=== PATIENT | male | born 1995 | race Caucasian/White ===

== ENCOUNTER 2021-03-09 10:21 | Outpatient (REF) | payer OTHER, SELFPAY ==
[2021-03-09 10:24] LABS: MANUAL DIFF FLAG NO
[2021-03-09 10:33] LABS: Basophils Percent Auto 0.6 % (0-2); Eosinophils Absolute Auto 0.3 X10*3/uL (0.0-0.4); Eosinophils Percent Auto 5.8 % (0-4); Hematocrit 42.3 % (42.0-52.0); Hemoglobin 13.8 g/dl (14.0-18.0); Imm Gran Abs Auto 0.01 X10*3/uL (0.00-0.03); Imm Gran Pct Auto 0.2 % (0.0-0.4); Lymphocytes Absolute Auto 1.9 X10*3/uL (1.2-4.9); Lymphocytes Percent Auto 37.1 % (20-40); Mean Corpuscular HGB Conc 32.6 g/dl (31.0-36.0); Mean Corpuscular Hemoglobin 27.8 pg (27.0-33.0); Mean Corpuscular Volume 85.3 fL (80.0-98.0); Mean Platelet Volume 11.8 fL (9.4-12.4); Monocytes Absolute Auto 0.6 X10*3/uL (0.1-1.2); Monocytes Percent Auto 12.3 % (2-11); Neutrophils Absolute Auto 2.3 x10*3/uL (2.0-8.3); Platelet Count 166 X10*3/uL (160-400); Red Blood Count 4.96 X10*6/uL (4.60-5.80); Red Cell Distribution Width 12.5 % (11.0-16.0); White Blood Count 5.2 X10*3/uL (4.8-10.8)
[2021-03-09 10:37] LABS: Appearance Urine CLEAR; Color Urine YELLOW; Glucose Urine UA NEG (NEG); Leukocyte Esterase Urine NEG (NEG); Nitrite Urine NEG (NEG); Urine Blood TRACE (NEG); Urine Ketones NEG (NEG); Urine Protein NEG (NEG-TRACE)
[2021-03-09 10:43] LABS: Alanine Aminotransferase 19 U/L (0-40); Albumin Level 4.4 g/dL (3.5-5.0); Alkaline Phosphatase 46 U/L (39-117); Anion Gap 12 (12-20); Aspartate Amino Transferase 23 U/L (5-37); Blood Urea Nitrogen 18 mg/dL (9-16); Calcium 9.4 mg/dL (8.4-10.2); Carbon Dioxide 26 mmol/L (22-29); Chloride 103 mmol/L (96-108); Cholesterol 146 mg/dL; Estimated Glomerular Filt Rate > 60; Glucose Fasting 86 mg/dL (60-99); HDL Cholesterol 60 mg/dL; LDL Cholesterol Calculated 77 mg/dl; Sodium 137 mmol/L (135-145); Total Protein 6.9 g/dL (6.5-8.0); Triglycerides 46 mg/dL
[2021-03-09 10:54] LABS: RBC Urine 0-2 /HPF (0); WBC Urine 0 /HPF (0-4)
== END 2021-03-09 10:22 | disposition home or self-care (01) ==
LOC: HO.LNP 10:21
PROVIDERS: Visit Provider Internal Medicine
DX: Z00.00 Encounter for general adult medical examination without abnormal findings (principal); R80.9 Proteinuria, unspecified
CPT/HCPCS: 80053; 80061; 81001; 85025

== ENCOUNTER 2021-03-18 08:55 | Outpatient (REF) | payer OTHER, SELFPAY ==
[2021-03-18 10:40] LABS: HBS Num1 18.88 mIU/mL (0-7.99); HBc Num1 0.08 S/CO (0.00-0.79); HBsAGNum1 0.18 S/CO (0.00-0.99); HIV AB/AG Nonreactive (Nonreactive); HIV Num 1 0.07 S/CO (0.00-0.99); Hepatitis B Core Antibody Nonreactive (Nonreactive); Hepatitis B Surface Antigen Negative (Negative); ~HepC Num1 0.08 S/CO (0.00-0.79); ~Hepatitis B Surface Antibody REACTIVE (Nonreactive); ~Hepatitis C Antibody Nonreactive (Nonreactive)
[2021-03-19 01:01] LABS: CT PCR NOT DETECTED (Not Detect.); NG PCR NOT DETECTED (Not Detect.)
[2021-03-19 07:35] LABS: Syphilis Screen Nonreactive (Nonreactive)
[2021-03-19 07:46] LABS: Hepatitis A Antibody IgM 0.13 Index (0-0.79); ~Hepatitis A Antibody IgM Nonreactive (Nonreactive)
== END 2021-03-18 08:56 | disposition home or self-care (01) ==
LOC: HO.LAB 08:55
PROVIDERS: PCP Internal Medicine; Visit Provider Internal Medicine
DX: Z11.4 Encounter for screening for human immunodeficiency virus [HIV] (principal); Z11.3 Encounter for screening for infections with a predominantly sexual mode of transmission
CPT/HCPCS: 86704; 86706; 86709; 86780; 86803; 87340; 87389; 87491; 87591

== ENCOUNTER 2021-08-11 10:39 | Emergency (ER) | payer OTHER, SELFPAY ==
[2021-08-11 10:48] VITALS: BP 129/73; PULSE 67; RESP 16; TEMP 36.2; O2SAT 99; BMI 23.1
--- NOTE | 2021-08-11 12:14 | ED.ANIMALBIT ---
HPI - Animal Bite General Chief Complaint: Animal Bite Stated Complaint: dog bite Time Seen by Provider: 08/11/21 12:03 Source: patient Mode of arrival: ambulatory Limitations: no limitations History of Present Illness MD complaint: animal bite Onset (ago): day(s) (5) Animal: dog Description of animal: unknown animal Mechanism: scratch Location: neck Context: unprovoked Associated symptoms: none Treatments prior to arrival: irrigation Related Data Patient tetanus UTD: Yes (Reports he received his tetanus on Monday) Previous Rx's Medication Instructions Recorded amoxicillin 875 mg-potassium 1 tab PO BID 10 Days #20 tab 08/11/21 clavulanate 125 mg tablet Allergies Allergy/AdvReac Type Severity Reaction Status Date / Time No Known Allergies Allergy Verified 08/11/21 10:47 [No Known Allergies*] Review of Systems Review of Systems: Constitutional : No Weight loss, No Fever, No Chills, No Night Sweats, No Fatigue, No Malaise ENT/Mouth : No Hearing loss, No Ear Pain, No Nasal Congestion, No Sinus Pain, No Hoarseness, No sore throat, No Rhinorrhea, No Swallowing Difficulty Eyes: No Eye Pain, No Swelling, No Redness, No Foreign Body, No Discharge, No Vision Changes Cardiovascular : No Chest Pain, No SOB, No Dyspnea on Exertion, No Orthopnea, No Edema, No Palpitations Respiratory : No Cough, No Sputum, No Wheezing, No Smoke Exposure, No Dyspnea Gastrointestinal : No Nausea, No Vomiting, No Diarrhea, No Constipation, No abdominal Pain, No Hematochezia, No Melena Genitourinary : no irregular bleeding, No Dysuria, No Urinary Frequency, No Hematuria, No Urinary Incontinence, No Urgency, No Flank Pain, No Urinary Flow Changes, No Hesitancy Musculoskeletal : No joint pain, No Myalgias, No Joint Swelling Skin : + right sided neck abrasion, No Skin Lesions, No rash Neuro : No Weakness, No Numbness, No Paresthesias, No Loss of Consciousness, No Dizziness, No Headache Psych : No Anxiety/Panic, No Depression, No SI/HI/AH/VH, No Social Issues, Heme/Lymph: No Bruising, No Bleeding,No Lymphadenopathy Endocrine : No Polyuria, No Polydipsia, No Temperature Intolerance Yes all other systems are reviewed and are negative PMFSH Past Medical History Attestation statement: The following information was validated with the patient. Medical History No known health problems Social History Social History Advance Directives: No Advance Directives Information Provided: No Physical Exam ED Vital Signs: Vital Signs - 24 hr 08/11/21 10:48 Temperature 97.1 F Pulse Rate 67 Respiratory Rate 16 Blood Pressure 129/73 Pulse Oximetry 99 BMI result Body Mass Index 23.1 vital signs have been reviewed as normal and appeared to be correct. Blood pressure normal. Heart rate normal. Respiration rate normal. Temperature normal. Oxygen saturation normal. Appearance: Alert. Oriented X3. No acute distress. Head: Normal external exam. Normocephalic. Atraumatic. Eyes: PERRLA. EOMI. Conjunctiva and sclera normal. Eyelids normal. ENT: Pharynx normal. Uvula midline. Moist mucous membranes. No lesions/ulcerations or masses noted on the tongue. Normal voice. No trismus noted. No drooling noted. No muffled voice noted. Neck: Normal inspection. Neck supple. FROM. No adenopathy. Thyroid Normal. No tracheal deviation noted. No crepitus is noted. No meningeal signs. No neck mass noted. Superficial abrasions to right side of neck no actual bite guevara or puncture wounds or active bleeding or foreign bodies noted. CVS: Normal heart rate and rhythm. Heart sound normal. Pulses normal throughout. No murmurs/rales/gallops. Respiratory: No respiratory distress. Painless inspiration. Breath sounds normal. No wheezes/rales/rhonchi noted. Chest nontender. No crepitus is noted. No signs of trauma noted. No accessory muscle usage noted or decreased air movement noted. No signs of trauma. Back: Full range of motion noted. Skin: Skin warm and dry. Normal skin color. Normal skin turgor. No rashes/lesions/lacerations noted. Extremities: No lower extremity edema. No calf tenderness is noted. Extremities exhibit normal range of motion and nontender. Neuro: Oriented X 3. No motor deficit. No sensory deficit. Reflexes normal. Normal steady gait. No focal neuro deficits noted. CN's II-XII intact bilaterally? Vascular: + radial pulses/+ 2 distal pedal pulses/+2 dorsalis pedis b/l. Normal cap refill. No cyanosis noted to upper extremity nails and lower extremity toes nails. Course Course Course Narrative: Patient with superficial abrasions to right side of neck from unknown dog that was unprovoked [place] the dog park[place] He tried to find the dog although he is unsure if the dog was vaccinated. He reports that he obtained his tetanus shot on Monday. He denies any other symptoms. Therefore at this time patient will need a rabies immunoglobulin and vaccine and I explained him that he will need to come back on day 06/07 and 14 for the rabies vaccine at short-stay surgery and to return if any new or worsening symptoms will DC home antibiotics instructions to return on day to short-stay patient understands agrees with this plan. MDM - Animal Bite Medical Records Attestation: I reviewed the patient's medical records. Discharge Plan Discharge Clinical Impression: Bite by animal, Abrasion of neck Patient Disposition: Home, Self-Care Instructions: Animal Bite (ED) Additional Instructions: YOU DO NOT RETURN TO THE EMERGENCY DEPARTMENT YOU RETURN TO THE SHORT-STAY FOR THE REST OF YOUR RABIES VACCINE YOU NEED TO RETURN ON DAY 3 WHICH WILL BE 08/14/21 THEN ON 08/18/21 THEN ON 08/25/21 TO COMPLETE YOUR RABIES SERIES VACCINE THIS IS VERY IMPORTANT TO COMPLETE THE SERIES SO YOU DO NOT OBTAINED RABIES Prescriptions: New amoxicillin-pot clavulanate 875-125 mg tablet 1 tab PO BID 10 Days Qty: 20 0RF Referrals: Scott Tellez MD [Primary Care Provider] - 2 days
[2021-08-11] MEDS: Rabies Vaccine (PCEC)/PF 1 ML VIAL IM (12:44)
[2021-08-11] MEDS: Rabies Immune Globulin/PF 1,500 UNIT/5 ML VIAL 1462 UNIT IM (12:50)
== END 2021-08-11 13:40 | disposition home or self-care (01) ==
PROVIDERS: Emergency Provider Emergency Medicine; PCP Internal Medicine
DX: S10.97XA Other superficial bite of unspecified part of neck, initial encounter (principal); S10.91XA Abrasion of unspecified part of neck, initial encounter; M54.2 Cervicalgia; X58.XXXA Exposure to other specified factors, initial encounter; Y93.9 Activity, unspecified; Y92.830 Public park as the place of occurrence of the external cause; Y99.9 Unspecified external cause status
CPT/HCPCS: 90375; 90471; 90675; 96372; 99283; 99284

== ENCOUNTER 2021-08-14 09:51 | Outpatient (REF) | payer OTHER, SELFPAY | END 2021-08-14 09:52 | disposition home or self-care (01) | LOC: HO.MDS 09:51 | PROVIDERS: PCP Internal Medicine; Visit Provider Physician Assistant Medical | DX: Z29.14 Encounter for prophylactic rabies immune globulin (principal); S00.81XD Abrasion of other part of head, subsequent encounter; S10.91XD Abrasion of unspecified part of neck, subsequent encounter; W54.0XXD Bitten by dog, subsequent encounter; Z20.3 Contact with and (suspected) exposure to rabies | CPT/HCPCS: 90471; 90675 ==

== ENCOUNTER 2021-08-18 07:23 | Outpatient (REF) | payer OTHER, SELFPAY | END 2021-08-18 07:24 | disposition home or self-care (01) | LOC: HO.MDS 07:23 | PROVIDERS: Visit Provider Physician Assistant Medical | DX: Z29.14 Encounter for prophylactic rabies immune globulin (principal); S00.81XD Abrasion of other part of head, subsequent encounter; S10.91XD Abrasion of unspecified part of neck, subsequent encounter; W54.0XXD Bitten by dog, subsequent encounter; Z20.3 Contact with and (suspected) exposure to rabies | CPT/HCPCS: 90675 ==

== ENCOUNTER 2021-08-25 07:18 | Outpatient (REF) | payer OTHER, SELFPAY | END 2021-08-25 07:19 | disposition home or self-care (01) | LOC: HO.MDS 07:18 | PROVIDERS: Visit Provider Physician Assistant Medical | DX: Z29.14 Encounter for prophylactic rabies immune globulin (principal); S00.81XD Abrasion of other part of head, subsequent encounter; S10.91XD Abrasion of unspecified part of neck, subsequent encounter; W54.0XXD Bitten by dog, subsequent encounter; Z20.3 Contact with and (suspected) exposure to rabies | CPT/HCPCS: 90471; 90675 ==

== ENCOUNTER 2022-03-14 10:53 | Outpatient (REF) | payer OTHER, SELFPAY ==
[2022-03-14 10:57] LABS: MANUAL DIFF FLAG NO
[2022-03-14 11:02] LABS: Basophils Percent Auto 0.5 % (0-2); Eosinophils Absolute Auto 0.2 X10*3/uL (0.0-0.4); Eosinophils Percent Auto 3.6 % (0-4); Hematocrit 42.5 % (42.0-52.0); Imm Gran Abs Auto 0.01 X10*3/uL (0.00-0.03); Imm Gran Pct Auto 0.2 % (0.0-0.4); Mean Corpuscular HGB Conc 32.9 g/dl (31.0-36.0); Mean Corpuscular Hemoglobin 27.8 pg (27.0-33.0); Mean Corpuscular Volume 84.5 fL (80.0-98.0); Mean Platelet Volume 12.3 fL (9.4-12.4); Monocytes Absolute Auto 0.6 X10*3/uL (0.1-1.2); Neutrophils Absolute Auto 2.7 x10*3/uL (2.0-8.3); Neutrophils Percent Auto 48.7 % (45-73); Platelet Count 185 X10*3/uL (160-400); Red Blood Count 5.03 X10*6/uL (4.60-5.80); Red Cell Distribution Width 12.6 % (11.0-16.0); White Blood Count 5.5 X10*3/uL (4.8-10.8)
[2022-03-14 11:04] LABS: Appearance Urine Clear; Color Urine Yellow; Glucose Urine UA Negative (Negative); Leukocyte Esterase Urine Negative (Negative); Nitrite Urine Negative (Negative); Specific Gravity - Urine >= 1.030 (1.005-1.025); Urine Blood Negative (Negative); Urine Ketones Trace mg/dL (Negative); Urine Protein Negative (Neg-Trace)
[2022-03-14 11:07] LABS: Bacteria Urine None Seen (None Seen); Hyaline Casts Urine 0-2 /LPF (0-2); RBC Urine 0-2 /HPF (0-2); Squamous Epithelial Cell Urine 0-2 /HPF (0-2); WBC Urine 0-5 /HPF (0-5)
[2022-03-14 11:40] LABS: Alanine Aminotransferase 17 U/L (0-40); Albumin Level 4.2 g/dL (3.5-5.0); Alkaline Phosphatase 45 U/L (39-117); Anion Gap 13 (12-20); Aspartate Amino Transferase 25 U/L (5-37); Bilirubin Total 0.5 mg/dL (0.0-1.0); Blood Urea Nitrogen 15 mg/dL (9-16); Calcium 9.1 mg/dL (8.4-10.2); Carbon Dioxide 26 mmol/L (22-29); Chloride 103 mmol/L (96-108); Cholesterol 115 mg/dL; Estimated Glomerular Filt Rate > 60; Glucose Fasting 90 mg/dL (60-99); HDL Cholesterol 49 mg/dL; LDL Cholesterol Calculated 58 mg/dl; Potassium 3.8 mmol/L (3.3-5.1); Sodium 138 mmol/L (135-145); Total Protein 6.5 g/dL (6.5-8.0); Triglycerides 43 mg/dL
== END 2022-03-14 10:54 | disposition home or self-care (01) ==
LOC: HO.LNP 10:53
PROVIDERS: Visit Provider Internal Medicine
DX: Z00.00 Encounter for general adult medical examination without abnormal findings (principal)
CPT/HCPCS: 80053; 80061; 81001; 85025

== ENCOUNTER 2023-04-25 11:19 | Outpatient (REF) | payer OTHER, SELFPAY ==
[2023-04-25 11:22] LABS: MANUAL DIFF FLAG NO
[2023-04-25 12:04] LABS: Appearance Urine Clear; Basophils Percent Auto 0.7 % (0-2); Color Urine Yellow; Eosinophils Absolute Auto 0.3 X10*3/uL (0.0-0.4); Eosinophils Percent Auto 5.7 % (0-4); Glucose Urine UA Negative (Negative); Hematocrit 44.1 % (42.0-52.0); Hemoglobin 14.4 g/dl (14.0-18.0); Imm Gran Abs Auto 0.01 X10*3/uL (0.00-0.03); Imm Gran Pct Auto 0.2 % (0.0-0.4); Leukocyte Esterase Urine Negative (Negative); Lymphocytes Absolute Auto 1.7 X10*3/uL (1.2-4.9); Mean Corpuscular HGB Conc 32.7 g/dl (31.0-36.0); Mean Corpuscular Hemoglobin 27.9 pg (27.0-33.0); Mean Corpuscular Volume 85.3 fL (80.0-98.0); Monocytes Absolute Auto 0.5 X10*3/uL (0.1-1.2); Monocytes Percent Auto 10.3 % (2-11); Neutrophils Absolute Auto 2.1 x10*3/uL (2.0-8.3); Neutrophils Percent Auto 45.1 % (45-73); Nitrite Urine Negative (Negative); PH 5.5 (5.0-9.0); Platelet Count 185 X10*3/uL (160-400); Red Blood Count 5.17 X10*6/uL (4.60-5.80); Red Cell Distribution Width 12.6 % (11.0-16.0); Specific Gravity - Urine 1.025 (1.005-1.025); UMIC TRIGGER UACC YES; Urine Blood Trace (Negative); Urine Ketones Negative (Negative); Urine Protein Negative (Neg-Trace); White Blood Count 4.6 X10*3/uL (4.8-10.8)
[2023-04-25 12:10] LABS: Bacteria Urine None Seen (None Seen); Hyaline Casts Urine 0-2 /LPF (0-2); Squamous Epithelial Cell Urine 0-2 /HPF (0-2); WBC Urine 0-5 /HPF (0-5)
[2023-04-25 12:49] LABS: Alanine Aminotransferase 15 U/L (0-40); Albumin Level 4.5 g/dL (3.5-5.0); Alkaline Phosphatase 43 U/L (39-117); Anion Gap 12 (12-20); Aspartate Amino Transferase 22 U/L (5-37); Bilirubin Total 0.7 mg/dL (0.0-1.0); Blood Urea Nitrogen 19 mg/dL (9-16); Calcium 9.4 mg/dL (8.4-10.2); Carbon Dioxide 27 mmol/L (22-29); Chloride 104 mmol/L (96-108); Cholesterol 159 mg/dL (<200); Estimated Glomerular Filt Rate > 60; Glucose Fasting 80 mg/dL (60-99); HDL Cholesterol 56 mg/dL (>40); LDL Cholesterol Calculated 96 mg/dL (<100); Potassium 3.7 mmol/L (3.3-5.1); Sodium 139 mmol/L (135-145); Total Protein 7.1 g/dL (6.5-8.0); Triglycerides 39 mg/dL (<150)
== END 2023-04-25 11:20 | disposition home or self-care (01) ==
LOC: HO.LNP 11:19
PROVIDERS: Visit Provider Internal Medicine
DX: Z00.00 Encounter for general adult medical examination without abnormal findings (principal)
CPT/HCPCS: 80053; 80061; 81001; 85025

== ENCOUNTER 2023-06-29 14:57 | Outpatient (REF) | payer OTHER, SELFPAY ==
[2023-06-29 20:13] LABS: Urine Cytology See Pathology rpt
[2023-06-29 21:05] LABS: Appearance Urine Clear; Color Urine Yellow; Glucose Urine UA Negative (Negative); Leukocyte Esterase Urine Negative (Negative); Nitrite Urine Negative (Negative); Urine Blood Negative (Negative); Urine Ketones Negative (Negative); Urine Protein Negative (Neg-Trace)
[2023-06-29 21:10] LABS: Bacteria Urine None Seen (None Seen); Hyaline Casts Urine 0-2 /LPF (0-2); RBC Urine 0-2 /HPF (0-2); Squamous Epithelial Cell Urine 0-2 /HPF (0-2); WBC Urine 0-5 /HPF (0-5)
== END 2023-06-29 14:58 | disposition home or self-care (01) ==
LOC: HO.LAB 14:57
PROVIDERS: PCP Internal Medicine; Visit Provider Urology
DX: R31.29 Other microscopic hematuria (principal)
CPT/HCPCS: 81001; 81003; 88112

== ENCOUNTER 2023-06-29 14:57 | Outpatient (AMB) | payer OTHER, SELFPAY ==
--- NOTE | 2023-06-29 15:06 | A.OFFVIS_ITS ---
Intake Intake Visit Reasons: hematuria R31.2 Intake Note: NEW Patient presents today to established treatment for Hematuria: Meds- None Allergies to Antibiotic- No Known Allergies Blood Thinner- None Front Services Agent Required: No Accompanied by: Self / Same As Patient Allergies No Known Allergies [No Known Allergies*] Allergy (Verified 06/29/23 15:06) Medication List - Last Reconciled 06/29/23 by Catarina Smith MD No Known Home Meds HPI HPI Comments History of Present Illness Details Tristan is a 27-year-old male who is here for evaluation for microscopic hematuria. I have reviewed urine testing dating back to 2019 trace blood noted. The patient denies any irritative voiding symptoms. Denies gross hematuria. I have discussed that 0-3 red blood cells per high-powered field is within normal limits. Family history of breast cancer in his mother and maternal grandmother. He denies history of nicotine use. I have discussed reasons for blood in the urine may include but are not limited to kidney stones, cancer in the urinary tract, BPH, kidney stone disease or inflammatory conditions of the urinary tract. I will order a kidney and bladder ultrasound. I will send urine for microscopic evaluation and urine cytology. Pending results we will decide if cystoscopy is indicated. 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 Hematuria, microscopic Surgical History History of appendectomy Family History Father No known health problems Mother No known health problems Social History Alcohol intake: current Alcohol intake frequency: holidays/special occasions only Patient Tobacco Use Status: Never used Tobacco Review of Systems Const All systems reviewed & are unremarkable except as noted in HPI and below Reports no additional complaints Eyes Reports no additional complaints ENT Reports no additional complaints Card Reports no additional complaints Resp Reports no additional complaints GI Reports no additional complaints Reports as per HPI Musc Reports no additional complaints Skin/Breast Reports system reviewed and no additional complaints, except as documented Neuro Reports no additional complaints Psych Reports no additional complaints Endo Reports no additional complaints Neel/Lymph Reports no additional complaints Aller/Immun Reports no additional complaints Physical Exam Const General: healthy appearing, no acute distress and well developed Orientation/consciousness: patient oriented x3 HEENT Head: Yes normocephalic and Yes atraumatic Eyes Conjunctivae: conjunctivae normal Neck Neck: Yes normal visual inspection Chest Chest palpation & inspection: normal inspection of the chest Resp Effort & Inspection: normal respiratory effort Cardio Rate: regular rate GI Inspection: Yes normal to inspection Skin General skin exam: no rashes or lesions noted Neuro General: patient oriented x3 Extrem General: No pedal edema Psych Appearance: grossly normal Affect: normal affect Results AMB Urinalysis, Automated UA Leukoctes 0 Otilia/uL Last Edit by TARA Brice on 06/29/23 15:19 UA Nitrite Negative Last Edit by TARA Brice on 06/29/23 15:19 UA Urobilinogen 0.2 mg/dL Last Edit by TARA Brice on 06/29/23 15:1 9 UA Protein 0 mg/dL Last Edit by TARA Brice on 06/29/23 15:19 UA pH 7.0 Last Edit by TARA Brice on 06/29/23 15:19 UA Blood 10 Hesham/uL Last Edit by Adalberto Treadwell Marco on 06/29/23 15:19 UA Specific [place] 1.010 Last Edit by TARA Brice on 06/29/23 15: 19 UA Ketone Negative Last Edit by TARA Brice on 06/29/23 15:19 UA Bilirubin 0 mg/dL Last Edit by TARA Brice on 06/29/23 15:19 UA Glucose 0 mg/dL Last Edit by TARA Brice on 06/29/23 15:19 Results Reviewed Results Reviewed: Laboratory Last Values Urine pH (Auto) 7.0 06/29/23 15:17 Specific [place] (Auto) 1.010 06/29/23 15:17 Urine Protein (Auto) 0 mg/dL 06/29/23 15:17 Glucose (UA)(Auto) 0 mg/dL 06/29/23 15:17 Urine Ketones (Auto) Negative 06/29/23 15:17 Urine Blood (Auto) 10 Hesham/uL 06/29/23 15:17 Urine Nitrite (Auto) Negative 06/29/23 15:17 Urine Bilirubin (Auto) 0 mg/dL 06/29/23 15:17 Urine Urobilinogen (Auto) 0.2 mg/dL 06/29/23 15:17 Leukocyte Esterase (Auto) 0 Otilia/uL 06/29/23 15:17 Assessment & Plan Assessment & Plan (1) Hematuria: Code(s): R31.9 - Hematuria, unspecified Plan Urine cytology. urinalysis sent for microscopic evaluation. Renal and bladder ultrasound follow-up post Orders: Orders AMB Urinalysis Automated Today Z13.9 - Encounter for screening, unspecified UA w Microscopic Today R31.9 - Hematuria, unspecified US retroperitoneal comp Today R31.9 - Hematuria, unspecified Urine Cytology Today R31.29 - Other microscopic hematuria Patient Instructions: The patient had an opportunity to ask questions regarding treatment plan. All questions were answered. Laboratory studies reviewed in detail. No major barriers to understanding were identified. The patient expressed understanding and agreement with the above treatment plan. The patient is aware they should contact our office by phone for worsening of their current condition or the appearance of new symptoms. Compliance is encouraged with any medications and followup testing that is ordered. It is a privilege to be allowed the opportunity to participate in the urologic care of your patient. If you have any questions or concerns regarding treatment for the above conditions please do not hesitate to contact me. The office telephone contact is [phone]. This note is constructed in part using voice recognition software. While every effort has been made to ensure accuracy cd mixer errors may have been included. Yours sincerely, Catarina Smith MD Coding Level of Care Code New Pt Level 3 (11582) Diagnoses Hematuria R31.9
== END 2023-06-29 15:51 | disposition home or self-care (01) ==
PROVIDERS: PCP Internal Medicine; Visit Provider Urology
DX: Z13.9 Encounter for screening, unspecified (principal); R31.9 Hematuria, unspecified
CPT/HCPCS: 99203

== ENCOUNTER 2023-07-31 16:17 | Outpatient (REF) | payer OTHER, SELFPAY ==
--- NOTE | ~2023-07-31 | US_ITS ---
EXAMINATION: US RETROPERITONEAL COMPLETE (RENAL) CLINICAL INFORMATION: Hematuria, unspecified. COMPARISON: CT abdomen and pelvis 01/30/2014. TECHNIQUE: Real-time imaging of the kidneys and bladder. FINDINGS: RIGHT KIDNEY: 9.6 x 3.6 x 3.4 cm (SAG x AP x TRV). The kidney is normal in size, contour, and echogenicity. Renal cortical thickness is normal. No calculi or focal parenchymal lesions. No hydronephrosis. LEFT KIDNEY: 10.9 x 5.6 x 3.8 cm (SAG x AP x TRV). The kidney is normal in size, contour, and echogenicity. Renal cortical thickness is normal. No calculi or focal parenchymal lesions. No hydronephrosis. BLADDER: Well distended and normal. Bilateral ureteral jets are demonstrated. Prevoid bladder volume is 295.7 mL. Postvoid bladder volume is 14.5 mL. Prostate volume 9.8 mL. US/US retroperitoneal comp IMPRESSION: No explanation for hematuria.
== END 2023-07-31 16:18 | disposition home or self-care (01) ==
LOC: HO.US 16:17
PROVIDERS: PCP Internal Medicine; Visit Provider Urology
DX: R31.9 Hematuria, unspecified (principal)
CPT/HCPCS: 76770

== ENCOUNTER 2023-08-14 08:16 | Outpatient (AMB) | payer OTHER, SELFPAY ==
--- NOTE | 2023-08-14 08:19 | MHC.OFFVIS ---
Intake Visit Reasons: 7w/US Allergies No Known Allergies [No Known Allergies*] Allergy (Verified 08/14/23 08:20) HPI Comments Details: 08/14/2023--Tristan is here in follow-up for evaluation due to microscopic hematuria. He was initially evaluated on 06/29/2023; a renal ultrasound was ordered and urine was sent for cytology. Cytology came back with a few atypical cells. Renal ultrasound 07/31/2023 was within normal limits. Urine cytology 06/30/23-benign urothelial cells with a few atypical cells, reactive in nature and chronic inflammation. The patient is asymptomatic, without any irritative urinary symptoms. Discussed repeat urine cytology, if no new findings, will continue to monitor follow-up in 1 year. Review of chart: 06/29/2023--Tristan is a 27-year-old male who is here for evaluation for microscopic hematuria. I have reviewed urine testing dating back to 2019 trace blood noted. The patient denies any irritative voiding symptoms. Denies gross hematuria. I have discussed that 0-3 red blood cells per high-powered field is within normal limits. Family history of breast cancer in his mother and maternal grandmother. He denies history of nicotine use. I have discussed reasons for blood in the urine may include but are not limited to kidney stones, cancer in the urinary tract, BPH, kidney stone disease or inflammatory conditions of the urinary tract. I will order a kidney and bladder ultrasound. I will send urine for microscopic evaluation and urine cytology. Pending results we will decide if cystoscopy is indicated. 08/14/2023--plan-repeat urine cytology, follow-up in 1 year. 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 Hematuria, microscopic Surgical History History of appendectomy Family History Father No known health problems Mother No known health problems Social History Alcohol intake: current Alcohol intake frequency: holidays/special occasions only Patient Tobacco Use Status: Never used Tobacco Review of Systems Const All systems reviewed & are unremarkable except as noted in HPI and below Reports no additional complaints Eyes Reports no additional complaints ENT Reports no additional complaints Card Reports no additional complaints Resp Reports no additional complaints GI Reports no additional complaints Reports as per HPI Musc Reports no additional complaints Skin/Breast Reports system reviewed and no additional complaints, except as documented Neuro Reports no additional complaints Psych Reports no additional complaints Endo Reports no additional complaints Neel/Lymph Reports no additional complaints Aller/Immun Reports no additional complaints Results AMB Urinalysis, Automated UA Leukoctes 0 Otilia/uL Last Edit by TARA Brice on 08/14/23 08:29 UA Nitrite Negative Last Edit by Adalberto Treadwell Marco on 08/14/23 08:29 UA Urobilinogen 0.2 mg/dL Last Edit by TARA Brice on 08/14/23 08:29 UA Protein 0 mg/dL Last Edit by Adalberto Treadwell Marco on 08/14/23 08:29 UA pH 7.0 Last Edit by Adalberto Treadwell [facility] on 08/14/23 08:29 UA Blood 0 Hesham/uL Last Edit by Adalberto Treadwell Marco on 08/14/23 08:29 UA Specific [place] 1.020 Last Edit by Adalberto Treadwell Marco on 08/14/23 08:29 UA Ketone Negative Last Edit by Adalberto Treadwell Marco on 08/14/23 08:29 UA Bilirubin 0 mg/dL Last Edit by Adalberto Treadwell Marco on 08/14/23 08:29 UA Glucose 0 mg/dL Last Edit by Adalberto Treadwell [facility] on 08/14/23 08:29 Results Reviewed Results Reviewed: Date of Service: 07/31/23 EXAMINATION: US RETROPERITONEAL COMPLETE (RENAL) CLINICAL INFORMATION: Hematuria, unspecified. COMPARISON: CT abdomen and pelvis 01/30/2014. TECHNIQUE: Real-time imaging of the kidneys and bladder. FINDINGS: RIGHT KIDNEY: 9.6 x 3.6 x 3.4 cm (SAG x AP x TRV). The kidney is normal in size, contour, and echogenicity. Renal cortical thickness is normal. No calculi or focal parenchymal lesions. No hydronephrosis. LEFT KIDNEY: 10.9 x 5.6 x 3.8 cm (SAG x AP x TRV). The kidney is normal in size, contour, and echogenicity. Renal cortical thickness is normal. No calculi or focal parenchymal lesions. No hydronephrosis. BLADDER: Well distended and normal. Bilateral ureteral jets are demonstrated. Prevoid bladder volume is 295.7 mL. Postvoid bladder volume is 14.5 mL. Prostate volume 9.8 mL. IMPRESSION: No explanation for hematuria. Collected: 06/29/23 Location: .LAB Received: 06/30/23 Diagnosis Urine: Few atypical urothelial cells. COMMENT: Examination of a monolayer preparation slide shows benign urothelial cells with focal reactive changes, benign squamous cells, and few hyperchromatic urothelial cells with moderately increased nuclear:cytoplasmic ratios meeting the criteria for atypia. There are also scattered red blood cells, occasional casts, and scattered chronic inflammatory cells. Clinical History Microscopic hematuria Material Received Urine Gross Description Received are 50 cc of clear yellow fluid from which a ThinPrep slide is prepared. Assessment & Plan Assessment & Plan (1) Hematuria: Code(s): R31.9 - Hematuria, unspecified Category: Medical Plan Urinalysis today negative for blood. Urine cytology 06/30/23-benign urothelial cells with a few atypical cells, reactive in nature and chronic inflammation. The patient is asymptomatic, without any irritative urinary symptoms. Discussed repeat urine cytology, if no new findings, will continue to monitor follow-up in 1 year Orders: Orders AMB Urinalysis Automated Today Z13.9 - Encounter for screening, unspecified Patient Instructions: The patient had an opportunity to ask questions regarding treatment plan. The patient expressed understanding and agreement with the above treatment plan. The patient is aware they should contact our office by phone for worsening of their current condition or the appearance of new symptoms. Compliance is encouraged with any medications and followup testing that is ordered. It is a privilege to be allowed the opportunity to participate in the urologic care of your patient. If you have any questions or concerns regarding treatment for the above conditions please do not hesitate to contact me. The office telephone contact is [phone]. This note is constructed in part using voice recognition software. While every effort has been made to ensure accuracy landscape account manager errors may have been included. Yours sincerely, Catarina Smith MD Coding Level of Care Code Est Pt Level 3 (02727) Complex EM visit Add On G2211 Diagnoses Hematuria R31.9
--- NOTE | 2023-08-14 08:20 | A.OFFVIS_ITS ---
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
== END 2023-08-14 08:38 | disposition home or self-care (01) ==
PROVIDERS: PCP Internal Medicine; Visit Provider Urology
DX: R31.9 Hematuria, unspecified (principal); Z13.9 Encounter for screening, unspecified
CPT/HCPCS: 99213; G2211

== ENCOUNTER 2023-08-14 08:16 | Outpatient (REF) | payer OTHER, SELFPAY ==
[2023-08-14 16:45] LABS: Urine Cytology See Pathology rpt
== END 2023-08-14 08:17 | disposition home or self-care (01) ==
LOC: HO.LAB 08:16
PROVIDERS: PCP Internal Medicine; Visit Provider Urology
DX: R31.9 Hematuria, unspecified (principal)
CPT/HCPCS: 81003; 88112

== ENCOUNTER 2024-05-02 12:12 | Outpatient (REF) | payer OTHER, SELFPAY ==
[2024-05-02 12:15] LABS: MANUAL DIFF FLAG NO
[2024-05-02 12:29] LABS: Appearance Urine Clear; Basophils Percent Auto 0.6 % (0-2); Color Urine Yellow; Eosinophils Absolute Auto 0.1 X10*3/uL (0.0-0.4); Eosinophils Percent Auto 2.1 % (0-4); Glucose Urine UA Negative (Negative); Hematocrit 44.7 % (42.0-52.0); Hemoglobin 14.9 g/dl (14.0-18.0); Imm Gran Abs Auto 0.01 X10*3/uL (0.00-0.03); Imm Gran Pct Auto 0.2 % (0.0-0.4); Leukocyte Esterase Urine Negative (Negative); Lymphocytes Percent Auto 38.8 % (20-40); Mean Corpuscular HGB Conc 33.3 g/dl (31.0-36.0); Mean Corpuscular Hemoglobin 28.4 pg (27.0-33.0); Mean Corpuscular Volume 85.1 fL (80.0-98.0); Mean Platelet Volume 11.4 fL (9.4-12.4); Monocytes Absolute Auto 0.7 X10*3/uL (0.1-1.2); Monocytes Percent Auto 14.4 % (2-11); Neutrophils Absolute Auto 2.3 x10*3/uL (2.0-8.3); Neutrophils Percent Auto 43.9 % (45-73); Nitrite Urine Negative (Negative); Platelet Count 184 X10*3/uL (160-400); Red Blood Count 5.25 X10*6/uL (4.60-5.80); Red Cell Distribution Width 12.8 % (11.0-16.0); Specific Gravity - Urine 1.025 (1.005-1.025); UMIC TRIGGER UACC YES; Urine Blood Trace (Negative); Urine Ketones Trace mg/dL (Negative); Urine Protein Negative (Neg-Trace); White Blood Count 5.2 X10*3/uL (4.8-10.8)
[2024-05-02 12:34] LABS: Bacteria Urine None Seen (None Seen); Hyaline Casts Urine 0-2 /LPF (0-2); RBC Urine 0-2 /HPF (0-2); Squamous Epithelial Cell Urine 0-2 /HPF (0-2); WBC Urine 0-5 /HPF (0-5)
[2024-05-02 12:55] LABS: Alanine Aminotransferase 24 U/L (0-40); Albumin Level 4.5 g/dL (3.5-5.0); Alkaline Phosphatase 49 U/L (39-117); Anion Gap 11 (12-20); Aspartate Amino Transferase 31 U/L (5-37); Bilirubin Total 0.6 mg/dL (0.0-1.0); Blood Urea Nitrogen 15 mg/dL (9-16); Calcium 9.1 mg/dL (8.4-10.2); Carbon Dioxide 26 mmol/L (22-29); Chloride 107 mmol/L (96-108); Cholesterol 147 mg/dL (<200); Estimated Glomerular Filt Rate > 60; Glucose Fasting 84 mg/dL (60-99); HDL Cholesterol 63 mg/dL (>40); LDL Cholesterol Calculated 73 mg/dL (<100); Potassium 4.4 mmol/L (3.3-5.1); Sodium 140 mmol/L (135-145); Total Protein 7.4 g/dL (6.5-8.0); Triglycerides 56 mg/dL (<150)
--- OUTSIDE RECORDS SUMMARY | 2024-05-02 16:04 | XMS_ITS | Patient Health Record ---
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 Name Role Phone Scott Tellez Primary Care Provider Allergies No Known Allergies Results Component Value Reference Range Notes Urinalysis and Microscopic Reviewed date:07/02/2023 08:48:34 AM Interpretation: Performing Lab:[facility], [address] [place] [id number] Notes/Report: Color Urine Yellow Appearance Urine Clear PH 7.0 5.0-9.0 Glucose Urine UA Negative Negative mg/dL Urine Blood Negative Negative Specific [place] - Urine 1.010 1.005-1.025 Urine Protein Negative Neg-Trace mg/dL Urine Ketones Negative Negative mg/dL Nitrite Urine Negative Negative Leukocyte Esterase Urine Negative Negative RBC Urine 0-2 0-2 /HPF WBC Urine 0-5 0-5 /HPF Squamous Epithelial Cell Urine 0-2 0-2 /HPF Bacteria Urine None Seen None Seen Hyaline Casts Urine 0-2 0-2 /LPF US retroperitoneal comp Reviewed date:08/03/2023 05:31:49 PM Interpretation: Performing Lab: Notes/Report: [address] [address] Ultrasound Report Signed Patient: Tristan Fam MR#: [id number] : 1995 Acct:[id number] Age/Sex: 27 / M ADM Date: 07/31/23 Loc: HO.US Attending Dr: Catarina Smith MD Ordering Physician: Catarina Smith MD Date of Service: 07/31/23 Procedure(s): US retroperitoneal comp Accession Number(s): [id number] cc: Catarina Smith MD; Scott Tellez MD EXAMINATION: US RETROPERITONEAL COMPLETE (RENAL) CLINICAL INFORMATION: Hematuria, unspecified. COMPARISON: CT abdomen and pelvis 01/30/2014. TECHNIQUE: Real-time imaging of the kidneys and bladder. FINDINGS: RIGHT KIDNEY: 9.6 x 3.6 x 3.4 cm (SAG x AP x TRV). The kidney is normal in size, contour, and echogenicity. Renal cortical thickness is normal. No calculi or focal parenchymal lesions. No hydronephrosis. LEFT KIDNEY: 10.9 x 5.6 x 3.8 cm (SAG x AP x TRV). The kidney is normal in size, contour, and echogenicity. Renal cortical thickness is normal. No calculi or focal parenchymal lesions. No hydronephrosis. BLADDER: Well distended and normal. Bilateral ureteral jets are demonstrated. Prevoid bladder volume is 295.7 mL. Postvoid bladder volume is 14.5 mL. Prostate volume 9.8 mL. US/US retroperitoneal comp IMPRESSION: No explanation for hematuria. Dictated By: Justin Carter MD Signed By: <Electronically signed by Justin Carter MD in OV> 08/02/23 1039 DD/ 1701 TD/TT: Inspector Hairspring: [place] [id number] Ultrasound Report Signed Patient: Tristan Fam MR#: [id number] : 1995 Acct:[id number] Age/Sex: 27 / M ADM Date: 07/31/23 Loc: HO.US Attending Dr: Catarina Smith MD Ordering Physician: Catarina Smith MD Date of Service: 07/31/23 Procedure(s): US retroperitoneal comp Accession Number(s): [id number] cc: Kenny Smith MD; Scott Tellez MD EXAMINATION: US RETROPERITONEAL COMPLETE (RENAL) CLINICAL INFORMATION: Hematuria, unspecified. COMPARISON: CT abdomen and pelvi s 01/30/2014. TECHNIQUE: Real-time imaging of the kidneys and bladder. FINDINGS: RIGHT KIDNEY: 9.6 x 3.6 x 3.4 cm (SAG x AP x TRV). The kidney is normal in size, contour, an d echogenicity. Renal cortical thickness is normal. No calculi or focal parenchymal lesions. No hydronephrosis. LEFT KIDNEY: 10.9 x 5.6 x 3.8 cm (SAG x AP x TRV). The kidney is normal in size, contour, an d echogenicity. Renal cortical thickness is normal. No calculi or focal parenchymal lesions. No hydronephrosis. BLADDER: Well disten ded and normal. Bilateral ureteral jets are demonstrated. Prevoi d bladder volume is 295.7 mL. Postvoid bladder volume is 14.5 mL. Prostate volume 9.8 mL. US/US retroperitoneal comp IMPRESSION: No explanation for hematuria. Dictated By: Justin Carter MD Signed By: <Electronically signed by Justin Carter MD in OV> 08/02/23 1039 DD/ 1701 TD/TT: Inspector Hairspring: ROGELIO Complete Blood Count Auto Di ff (Not yet reviewed by provider) Interpretation: Performing Lab:[facility], [address] [place] [id number] Notes/Report: White Blood Count 5.2 4.8-10.8 X10*3/uL Red Blood Count 5.25 4.60-5.80 X10*6/uL Hemoglobin 14.9 14.0-18.0 g/dl Hematocrit 44.7 42.0-52.0 % Mean Corpuscular Volume 85.1 80.0-98.0 fL Mean Corpuscular Hemoglobin 28.4 27.0-33.0 pg Mean Corpuscular HGB Conc 33.3 31.0-36.0 g/dl Red Cell Distribution Width 12.8 11.0-16.0 % Platelet Count 184 160-400 X10*3/uL Mean Platelet Volume 11.4 9.4-12.4 fL Neutrophils Percent Auto 43.9 45-73 % Imm Gran Pct Auto 0.2 0.0-0.4 % Lymphocytes Percent Auto 38.8 20-40 % Monocytes Percent Auto 14.4 2-11 % Eosinophils Percent Auto 2.1 0-4 % Basophils Percent Auto 0.6 0-2 % NRBC Pct Auto 0.0 0.0-0.2 /100WBC Neutrophils Absolute Auto 2.3 2.0-8.3 x10*3/u L Imm Gran Abs Auto 0.01 0.00-0.03 X10*3/uL Lymphocytes Absolute Auto 2.0 1.2-4.9 X10*3/u L Monocytes Absolute Auto 0.7 0.1-1.2 X10*3/uL Eosinophils Absolute Auto 0.1 0.0-0.4 X10*3/u L Basophils Absolute Auto 0.0 0.0-0.2 X10*3/uL NRBC Abs Auto 0.000 0.0-0.012 X10*3/uL Comprehensive [place]. Panel [facility] (Not yet reviewed by provider) Interpretation: Performing Lab:[facility], [address] [place] [phone] Notes/Report: Sodium 140 135-145 mmol/L Potassium 4.4 3.3-5.1 mmol/L Chloride 107 96-108 mmol/L Carbon Dioxide 26 22-29 mmol/L Anion Gap 11 12-20 Blood Urea Nitrogen 15 9-16 mg/dL Creatinine 0.82 0.5-1.4 mg/dL Estimated Glomerular Filt Rate > 60 Chronic Kidney Disease: Estimated GFR < 60 mL/min/1.73m2 Severe Kidney Disease: Estimated GFR < 15 mL/min/1.73m2 Glucose Fasting 84 60-99 mg/dL Calcium 9.1 8.4-10.2 mg/dL Bilirubin Total 0.6 0.0-1.0 mg/dL Aspartate Amino Transferase 31 5-37 U/L Alanine Aminotransferase 24 0-40 U/L Total Protein 7.4 6.5-8.0 g/dL Albumin Level 4.5 3.5-5.0 g/dL Alkaline Phosphatase 49 39-117 U/L Lipid Panel (Not yet reviewe d by provider) Interpretation: Performing Lab:[facility], [address] [place] [phone] Notes/Report: Triglycerides 56 <150 mg/dL Desirable Triglyceride: less than 150 mg/dL Borderline High Triglyceride 150-199 mg/dL High Triglyceride: 200-499 mg/dL Very High Triglyceride: greater than or equal to 5OO mg/dL Cholesterol 147 <200 mg/dL Desirable Cholesterol: less than 200 mg/dL Borderline High Cholesterol: 200-239 mg/dL High Cholesterol: greater than 239 mg/dL LDL Cholesterol Calculated 73 <100 mg/dL Desirable LDL: less than 100 mg/dL Near Optimal/Above Optimal LDL: 110-129 mg/dL Borderline High LDL: 130-159 mg/dL High LDL: 160-189 mg/dL Very High LDL: greater than or equal to 190 mg/dL HDL Cholesterol 63 >40 mg/dL Desirable HDL: greater than 40 mg/dL Note: This HDL assay may give artificially low results in patients with liver disease. UA ClnCatch+Micro w/rflx Cul t (Not yet reviewed by provider) Interpretation: Performing Lab:[facility], [address] [place] [phone] Notes/Report: [id number] Urine, Clean Catch Color Urine Yellow Appearance Urine Clear PH 6.0 5.0-9.0 Glucose Urine UA Negative Negative mg/dL Urine Blood Trace Negative Specific [place] - Urine 1.025 1.005-1.025 Urine Protein Negative Neg-Trace mg/dL Urine Ketones Trace Negative mg/dL Nitrite Urine Negative Negative Leukocyte Esterase Urine Negative Negative RBC Urine 0-2 0-2 /HPF WBC Urine 0-5 0-5 /HPF Squamous Epithelial Cell Urine 0-2 0-2 /HPF Bacteria Urine None Seen None Seen Hyaline Casts Urine 0-2 0-2 /LPF Reason For Referral Reason microscopic hematuri a Diagnosis 1 Microscopic hematuri a (R31.29) Referral Organization Scott Tellez MD Referring Provider First Name Scott Referring Provider Last Name Rosalinda Referring Provider Speciality Internal M edicine Referred Provider Adolfo Freitas Referred Provider Specialty Urology General Notes Sondra Paiz 09:09:27 AM EST > info faxed , Sondra Paiz 05/02/2023 09:09:48 AM EST > mailed patient referral info form along with appts Referral Priority Routine Immunizations Vaccine Route Administration Date Status Comme nts Flu Vaccine IM Intramuscular 01/12/2012 Administered TDaP IM Intramuscular 10/22/2012 Administered Tetanus Unknown 10/22/2012 Administered Fluarix Quadrivalent IM Intramuscular 02/18/2019 Administe sal SARS-COV-2 Pfizer Unknown 06/26/2020 Administered Fluarix Quadrivalent Unknown 03/02/2020 Refused Fluarix Quadrivalent Unknown 03/18/2021 Refused Fluarix Quadrivalent Unknown 04/28/2022 Refused Social History Tobacco Use: Social History Observation Description Date Details (start date - stop date) Never Smoker NA - NA Tobacco Use/Smoking Question Answer Notes Patient is a nonsmoker Additional Findings: Tobacco Non-User Cu rrent non-smoker, currently using no form of tobacco Alcohol Screen Question Answer Notes Did you have a drink contain ing alcohol in the past year? Yes How often did you have a dri nk containing alcohol in the past year? 2 to 4 times a month (2 points) How many drinks did you have on a typical day when you were drinking in the past year? 1 or 2 drinks (0 point) How often did you have 6 or more drinks on one occasion in the past year? 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 Problem 88753578 Proteinuria, unspecified type (R80.9) Active confirmed Vital Signs Blood pressure diastolic 54 mm Hg 05/02/2023 kamini ght is up 7 pounds with heavy boots Height 67.5 in 05/02/2023 weight is up 7 pounds with heavy boots Blood pressure systolic 102 mm Hg 05/02/2023 weig ht is up 7 pounds with heavy boots Weight 158 lbs 05/02/2023 weight is up 7 pounds with heavy boots BMI 24.38 kg/m2 05/02/2023 weight is up 7 pounds with heavy boots Encounters Encounter Location Date Provider Diagnosis Scott Tellez MD [address] [place], [place] [phone] 05/02/2024 Scott Tellez Blood tests for routine general physical examination Z00.00 and Proteinuria, unspecified type R80.9 Scott Tellez MD [address] [place], [place] [phone] 05/02/2023 Scott Tellez Microscopic hematuria R31.29 ; Annual physical exam Z00.00 and Perforated ear drum, left H72.92 Assessments Encounter Date Diagnosis (ICD Code) Assessment Notes Treatment Notes Treatment Clinical Notes Section Notes 05/02/2024 Blood tests for routine general physical examination (ICD-10 - Z00.00) 05/02/2023 Microscopic hematuria (ICD-10 - R31.29) referral to urology/ referral info form mailed to patient his next appts. 05/02/2023 Annual physical exam (ICD-10 - Z00.00) labs reviewed and discussed with patient 05/02/2024 Proteinuria, unspecified type (ICD-10 - R80.9) 05/02/2023 Perforated ear drum, left (ICD-10 - H72.92) referral to dr alegre/ info given to patient to call and make his own appt Plan Of Treatment Pending Test Test Name Order Date Complete Blood Count Auto Diff 5 Comprehensive [place]. Panel Fast 5 Lipid Panel 05/02/2024 UA ClnCatch+Micro w/rflx Cult 05/02/2024 Next Appt Details Provider Name:Scott sheppard, 05/27/2024 03:30:00 PM, [address] [place] [address], [address], [place], [place], [phone], Medical (General) History Medical History History ICD Code healthy
--- OUTSIDE RECORDS SUMMARY | 2024-05-02 16:04 | XMS_ITS ---
Author Organization Scott Tellez MD Address [address] [place], [place] [id number] Care Team Providers Care Seamless Hosiery Knitter Name Role Phone Scott Tellez Primary Care Provider Allergies No Known Allergies Reason For Referral Reason microscopic hematuri a [...] form along with appts Referral Priority Routine REASON FOR VISIT annual visit, No Covid symptoms Social History Tobacco Use: Social History Observation [...] Never (0 point) Points 2 Interpretation Negative Vital Signs Blood pressure systolic 102 mm Hg 05/02/19 24 Blood pressure diastolic 54 mm Hg 024 Height 67.5 in 05/02/2023 Weight 158 lbs 05/02/2023 BMI 24.38 kg/m2 05/02/2023 weight is up 7 pounds with h eavy boots Encounters Encounter Location Date Provider Diagnosis Scott Tellez MD [address] [place] [address] Drive [address] [place] [phone] 05/02/2023 Scott Tellez Microscopic hematuria R31.29 ; Annual physical exam Z00.00 and Perforated ear drum, left H72.92 Assessments Encounter Date Diagnosis (ICD Code) Assessment Notes Treatment Notes Treatment Clinical Notes Section Notes 05/02/2023 Microscopic hematuria (ICD-10 - R31.29) referral to urology/ referral info form mailed to patient his next appts. 05/02/2023 Annual physical exam (ICD-10 - Z00.00) labs reviewed and discussed with patient 05/02/2023 Perforated ear drum, left (ICD-10 - H72.92) referral to dr alegre/ info given to patient to call and make his own appt Plan Of Treatment Treatment Notes Assessment Notes Microscopic hematuria referral to urolog y/ referral info form mailed to patient his next appts. Annual physical exam labs reviewed and d iscussed with patient Perforated ear drum, left referral to dr alegre/ info given to patient to call and make his own appt Referrals Referral Date Details 05/02/2023 05/02/2023, microsco pic hematuria , Adolfo Freitas Next Appt Details Follow Up: 12Months, Reason: Provider Name:Scott Lee iedayanara, 05/27/2024 03:30:00 PM, [address] [place] [address] Drive, [address], [place], [place], [phone], Progress Notes * ALEYDA BRAYDOB:[birth year] (27 yo M)Acc No.[id number]:05/02/2023 Progress Notes Patient:?ALEYDA BRAY Provider:?Scott Tellez MD :1995???Age:27 Y???Sex:Male Leonidse e:05/02/2023 Address:[address] [place] [address] [phone] Subjective: * Chief Complaints: * ???Annual visitNo Covid symp toms * HPI: ???Depression Screening:?PHQ-9?Little interest or pleasure in doing things?Not at all,?Feeling down, depressed, or hopeless?Not at all,?Trouble falling or staying asleep, or sleeping too much?Not at all,?Feeling tired or having little energy?Not at all,?Poor appetite or overeating?Not at all,?Feeling bad about yourself or that you are a failure, or have let yourself or your family down?Not at all,?Trouble concentrating on things, such as reading the newspaper or watching television?Not at all,?Moving or speaking so slowly that other people could have noticed; or the opposite, being so fidgety or restless that you have been moving around a lot more than usual?Not at all,?Thoughts that you would be better off or of hurting yourself in some way?Not at all,?Total Score?0.?Interpretation and Intervention?Depression Screening Findings?Negative,?Follow-Up for Depression?: review of PHQ-9 found negative result, no follow-up needed.?Communication Needs:?Communication Needs?Does the patient have a hearing impairment?No,?Does the patient have a vision impairment??No,?Does the patient have a cognition impairment??No.?SDOH Questions:?SDOH Questions?In the past year have you been worried about losing housing??No,?In the past year have you or any family members you live with been unable to get any of the following when it was really needed? Check all that apply:?None.?Symptom(s):? patient is a 27 yo male here for annual visit with review of recent labs. * ROS:?General/Constitutional:?Patient denies?fatigue , headache.?Change in appetite?denies.?Chills?denies.?Fever?denies.?Ophthalmologic:?Blurred vision?denies.?Discharge?denies.?Pain?denies.?ENT:?Patient denies?decreased sense of smell , any loss of taste , sore throat.?Decreased hearing?denies.?Sore throat?denies.?Swollen glands?denies.?Endocrine:?Cold intolerance?denies.?Excessive thirst?denies.?Heat intolerance?denies.?Weight loss?denies.?Respiratory:?Cough?denies.?Shortness of breath at rest?denies.?Shortness of breath with exertion?denies.?Wheezing?denies.?Cardiovascular:?Chest pain at rest?denies.?Chest pain with exertion?denies.?Irregular heartbeat?denies.?Shortness of breath?denies.?Gastrointestinal:?Abdominal pain?denies.?Change in bowel habits?denies.?Diarrhea?denies.?Nausea?denies.?Rectal bleeding?denies.?Vomiting?denies .?Genitourinary:?Blood in urine?denies.?Difficulty urinating?denies.?Frequent urination?denies.?Musculoskeletal:?Patient denies?muscle aches.?Painful joints?denies.?Weakness?denies.?Peripheral Vascular:?Patient denies?red and blue toes.?Skin:?Dry skin?denies.?Itching?denies.?Denies?Mole(s),? changes in moles, new moles or any lesions of concern.?Denies?Photosensitivity.?Rash?denies.?Neurologic:?Dizziness?denies.?Fainting?denies.?Headache?denies.? * Medical History:? * Surgical History:? * Hospitalization/Major Diagno stic Procedure:? * Family History:?Father: cruzito hogan 61 yrs.?Mother: alive 58 yrs.?1 brother(s) , 1 sister(s) . .? Father- Healthy Mother- healthy, Denies mental health/substance abuse family history, Denies mental health/substance abuse family history, Denies mental health/substance abuse family history, No pertinent family medical history. * Social History:?Tobacco Use:?Tobacco Use/Smoking?Patient is a?nonsmoker,?Additional Findings: Tobacco Non-User?Current non-smoker, currently using no form of tobacco.?Drugs/Alcohol:?Alcohol Screen?Did you have a drink containing alcohol in the past year??Yes,?How often did you have a drink containing alcohol in the past year??2 to 4 times a month (2 points),?How many drinks did you have on a typical day when you were drinking in the past year??1 or 2 drinks (0 point),?How often did you have 6 or more drinks on one occasion in the past year??Never (0 point),?Points?2,?Interpretation?Negative.?Miscellaneous:?no Caffeine. no Children. no Community involvements. Exercise: yes, walking at work. Home smoke detector use: yes. Housing: renting. Marital status: single. Occupation: weeks/months/years, works full-time. Pets: none. Travel outside of the [place]: yes, [place]. * Medications:?None * Allergies:?N.K.D.A.yes[Aller gies Verified] Objective: * Vitals:?Ht: 67.5, Wt:158, BM I:24.38, BP:102/54 weight is up 7 pounds with heavy boots. * ???Past Orders: ???Lab:Complete Blood Count Auto Diff (Order Date - 04/25/2023) (Collection Date - 04/25/2023) ? Value Reference Range ?White Blood Count 4.6 L 4. 8-10.8 - X10*3/uL ?Red Blood Count 5.17 4.60 -5.80 - X10*6/uL ?Hemoglobin 14.4 14.0-18.0 - g/dl ?Hematocrit 44.1 42.0-52.0 - % ?Mean Corpuscular Volume 85.3 80.0-98.0 - fL ?Mean Corpuscular Hemoglobin 27.9 27.0-33.0 - pg ?Mean Corpuscular HGB Conc 32.7 31.0-36.0 - g/dl ?Red Cell Distribution Width 12.6 11.0-16.0 - % ?Platelet Count 185 160-4 00 - X10*3/uL ?Mean Platelet Volume 12.0 9.4-12.4 - fL ?Neutrophils Percent Auto 45.1 45-73 - % ?Imm Gran Pct Auto 0.2 0. 0-0.4 - % ?Lymphocytes Percent Auto 38.0 20-40 - % ?Monocytes Percent Auto 10.3 2-11 - % ?Eosinophils Percent Auto 5.7 H 0-4 - % ?Basophils Percent Auto 0.7 0-2 - % ?NRBC Pct Auto 0.0 0.0-0. 2 - /100WBC ?Neutrophils Absolute Auto 2.1 2.0-8.3 - x10*3/uL ?Imm Gran Abs Auto 0.01 0. 00-0.03 - X10*3/uL ?Lymphocytes Absolute Auto 1.7 1.2-4.9 - X10*3/uL ?Monocytes Absolute Auto 0.5 0.1-1.2 - X10*3/uL ?Eosinophils Absolute Auto 0.3 0.0-0.4 - X10*3/uL ?Basophils Absolute Auto 0.0 0.0-0.2 - X10*3/uL ?NRBC Abs Auto 0.000 0.0-0. 012 - X10*3/uL ???Lab:Comprehensive [place]. P daly Fast (Order Date - 04/25/2023) (Collection Date - 04/25/2023) ? Value Reference Range ?Sodium 139 135-145 - mmo l/L ?Bilirubin Total 0.7 0.0- 1.0 - mg/dL ?Aspartate Amino Transferase 22 5-37 - U/L ?Alanine Aminotransferase 15 0-40 - U/L ?Total Protein 7.1 6.5-8. 0 - g/dL ?Albumin Level 4.5 3.5-5. 0 - g/dL ?Alkaline Phosphatase 43 39-117 - U/L ?Potassium 3.7 3.3-5.1 - mmol/L ?Chloride 104 96-108 - mm ol/L ?Carbon Dioxide 27 22-29 - mmol/L ?Anion Gap 12 12-20 - ?Blood Urea Nitrogen 19 H 9-16 - mg/dL ?Creatinine 0.96 0.5-1.4 - mg/dL ?Estimated Glomerular Filt Rate > 60 - ?Glucose Fasting 80 60-9 9 - mg/dL ?Calcium 9.4 8.4-10.2 - m g/dL ???Lab:Lipid Panel (Order Da te - 04/25/2023) (Collection Date - 04/25/2023) ? Value Reference Range ?Triglycerides 39 <150 - mg/dL ?Cholesterol 159 <200 - m g/dL ?LDL Cholesterol Calculated 96 <100 - mg/dL ?HDL Cholesterol 56 >40 - mg/dL ???Lab:UA ClnCatch+Micro w/r flx Cult (Order Date - 04/25/2023) (Collection Date - 04/25/2023) ?Result: see back 1-3 0-24 ? Value Reference Range ?Color Urine Yellow - ?Appearance Urine Clear - ?PH 5.5 5.0-9.0 - ?Glucose Urine UA Negative Neg ative - mg/dL ?Urine Blood Trace A Negative - ?Specific [place] - Urine 1.025 1.005-1.025 - ?Urine Protein Negative Neg-Tr césar - mg/dL ?Urine Ketones Negative Negati ve - mg/dL ?Nitrite Urine Negative Negati ve - ?Leukocyte Esterase Urine Negative Negative - ?RBC Urine 3-5 A 0-2 - /HPF ?WBC Urine 0-5 0-5 - /HPF ?Squamous Epithelial Cell Urine 0-2 0-2 - /HPF ?Bacteria Urine None Seen None Seen - ?Hyaline Casts Urine 0-2 0-2 - /LPF * Examination: ???General Examination: ?GENERAL APPEARANCE:?well developed, well nourished, in no acute distress.?HEAD:?normocephalic, atraumatic.?EYES:?pupils equal, round, reactive to light and accommodation, sclera non-icteric.?EARS:?normal, BOTH EARS, auditory canal obscured with wax.?ORAL CAVITY:?mucosa moist.?THROAT:?clear.?NECK/THYROID:?neck supple, full range of motion, no cervical lymphadenopathy, no bruits.?SKIN:?warm and dry, no suspicious lesions.?HEART:?regular rate and rhythm, S1, S2 normal, no murmurs.?LUNGS:?clear to auscultation bilaterally.?ABDOMEN:?soft, nontender, nondistended, bowel sounds present, normal, no organomegaly , no masses palpable.?RECTAL EXAM:?not examined.?MALE GENITOURINARY:?circumcised, testes descended bilaterally, no testicular mass.?EXTREMITIES:?no clubbing, cyanosis, or edema.?NEUROLOGIC:?nonfocal, motor strength normal upper and lower extremities, sensory exam intact.? Assessment: * Assessment: 1.?Annual physical exam - Z0 0.00 (Primary)?2.?Microscopic hematuria - R31.29?3.?Perforated ear drum, left - H72.92? Plan: * Treatment: 2.?Microscopic hematuria? Notes: referral to urology/ referral info form mailed to patient his next appts.? Referral To:Adolfo Freitas??Urology ?Reason:microscopic hematuria 3.?Perforated ear drum, left ? Notes: referral to dr alegre/ info given to patient to call and make his own appt.?? * Procedure Codes:? * Follow Up:?12Months * * Sign off status: Completed true * Provider:?Scott Tellez MD Date:?0 05/02/2023 Generated for Marlen ruiz/Jae/eTransmitting on:?05/02/2024 04:04 PM EST History and Physical Notes * HPI (History of Present Illness) Category Sub-Category Detail Notes Category Not es Symptom(s) patient is a 27 yo male here for annual visit with review of recent labs Depression Screening PHQ-9 Little inte rest or pleasure in doing things: Not at all Feeling down, depressed, or hopeless: No t at all Trouble falling or staying asleep, or sl eeping too much: Not at all Feeling tired or having little energy: N ot at all Poor appetite or overeating: Not at all Feeling bad about yourself o r that you are a failure, or have let yourself or your family down: Not at all Trouble concentrating on thi ngs, such as reading the newspaper or watching television: Not at all Moving or speaking so slowly that other people could have noticed; or the opposite, being so fidgety or restless that you have been moving around a lot more than usual: Not at all Thoughts that you would be b dottie off or of hurting yourself in some way: Not at all Total Score: 0 Interpretation and Intervention Depression Ivoryedison lucía Findings: Negative Follow-Up for Depression: : review of PH Q-9 found negative result, no follow-up needed SDOH Questions SDOH Questions In the past year have you been worried about losing housing?: No In the past year have you or any family members you live with been unable to get any of the following when it was really needed? Check all that apply:: None Communication Needs Communication Needs Does the patient have a hearing impairment: No Does the patient have a vision impairmen t?: No Does the patient have a cognition impair ment?: No Examination Category Sub-Category Detail Notes Category Not es General Examination GENERAL APPEARANCE: well dev eloped, well nourished, in no acute distress HEAD: normocephalic, atrau matic EYES: pupils equal, round, reactive to light and accommodation, sclera non-icteric EARS: normal, BOTH EARS, a uditory canal obscured with wax THROAT: clear NECK/THYROID: neck supple, full ra nge of motion, no cervical lymphadenopathy, no bruits HEART: regular rate and rhy thm, S1, S2 normal, no murmurs LUNGS: clear to auscultatio n bilaterally ABDOMEN: soft, nontender, non distended, bowel sounds present, normal, no organomegaly , no masses palpable NEUROLOGIC: nonfocal, motor stre ngth normal upper and lower extremities, sensory exam intact SKIN: warm and dry, no nader picious lesions EXTREMITIES: no clubbing, cyanosi s, or edema MALE GENITOURINARY: circumcised, testes descended bilaterally, no testicular mass RECTAL EXAM: not examined ORAL CAVITY: mucosa moist Consultation Request Notes Referral Date Referring Provider Referred Provider Not es 05/02/2023 Scott Tellez, [facility]
--- OUTSIDE RECORDS SUMMARY | 2024-05-02 16:04 | XMS_ITS ---
Author Organization Scott Tellez MD Address [address] [place], [place] [phone] Care Team Providers Care Care Support Representative Name Role Phone Scott Tellez Primary Care Provider [phone] Results Component Value Reference Range Notes Complete Blood Count Auto Di ff (Not yet reviewed by provider) Interpretation: Performing Lab:[facility], [address] [place] [phone] Notes/Report: White Blood Count 5.2 4.8-10.8 X10*3/uL [...] NRBC Abs Auto 0.000 0.0-0.012 X10*3/uL Comprehensive [place]. Panel Fa st (Not yet reviewed by provider) Interpretation: Performing Lab:[facility], [address] [place] [phone] Notes/Report: Sodium 140 135-145 mmol/L Potassium 4.4 [...] yet reviewe d by provider) Interpretation: Performing Lab:[facility], [address] [place] [phone] Notes/Report: Triglycerides 56 <150 mg/dL Desirable Triglyceride: [...] (Not yet reviewed by provider) Interpretation: Performing Lab:[facility], [address] [place] [phone] Notes/Report: [id number] Urine, Clean Catch Color Urine Yellow Appearance Urine Clear PH 6.0 5.0-9.0 Glucose Urine UA Negative Negative mg/dL Urine Blood Trace Negative Specific [place] - Urine 1.025 1.005-1.025 Urine Protein Negative Neg-Trace mg/dL Urine Ketones Trace Negative mg/dL Nitrite Urine Negative Negative Leukocyte Esterase Urine Negative Negative RBC Urine 0-2 0-2 /HPF WBC Urine 0-5 0-5 /HPF Squamous Epithelial Cell Urine 0-2 0-2 /HPF Bacteria Urine None Seen None Seen Hyaline Casts Urine 0-2 0-2 /LPF REASON FOR VISIT yearly fasting labs Encounters Encounter Location Date Provider Diagnosis Scott Tellez MD [address] [place] [address] [place] [phone] 05/02/2024 Scott Tellez Blood tests for routine general physical examination Z00.00 and Proteinuria, unspecified type R80.9 Assessments Encounter Date Diagnosis (ICD Code) Assessment Notes Treatment Notes Treatment Clinical Notes Section Notes 05/02/2024 Blood tests for routine general physical examination (ICD-10 - Z00.00) 05/02/2024 Proteinuria, unspecified type (ICD-10 - R80.9) Plan Of Treatment Pending Test Test Name Order Date Complete Blood Count Auto Diff 5 Comprehensive [place]. Panel Fast 5 Lipid Panel 05/02/2024 UA ClnCatch+Micro w/rflx Cult 05/02/2024 Next Appt Details Provider Name:Scott sheppard, 05/27/2024 03:30:00 PM, [address], [address], [place], [phone], Progress Notes * ALEYDA BRAYDOB:[birth year] (28 yo M)Acc No.[id number]:05/02/2024 Progress Note Patient:ALEYDA ROGERS Provider:?Scott Tellez MD :1995???Age:28 Y???Sex:Male Leonides e:05/02/2024 Address:[address] [place] [address] [id number] Subjective: * Chief Complaints: * ???1. Yearly fasting labs. * Medical History:? Objective: * Vitals:? Assessment: * Assessment: 1.?Blood tests for routine g eneral physical examination - Z00.00 (Primary)???2.?Proteinuria, unspecified type - R80.9??? Plan: * Treatment: 2.?Proteinuria, unspecified type?LAB: Complete Blood Count Auto Diff (Collection Date & Time - 05/02/2024 07:00 AM) ?LAB: Comprehensive [place]. Panel Fast (Collection Date & Time - 05/02/2024 07:00 AM) ?LAB: Lipid Panel (Collection Date & Time - 05/02/2024 07:00 AM) ?LAB: UA ClnCatch+Micro w/rflx Cult (Collection Date & Time - 05/02/2024 07:00 AM) * Procedure Codes:?81957 VENIP UNCT, ROUTINE* * * The named appointment provid er may or may not be the originator of this progress note, and it is not deemed complete until electronically signed by the appointment provider. Sign off status: Pending * Provider:?Scott Tellez MD Date:?0 05/02/2024 Generated for Marlen ng/Farafaelg/eTransmitting on:?05/02/2024 04:04 PM EST
--- OUTSIDE RECORDS SUMMARY | 2024-05-02 16:04 | XMS_ITS ---
Author Organization Scott Tellez MD Address [address] [place], [place] [phone] Care Team Providers Care Coating And Embossing Unit Operator Name Role Phone Scott Tellez Primary Care Provider Results Component Value Reference Range Notes Complete Blood Count Auto Di ff Reviewed date:04/25/2023 06:48:00 PM Interpretation: Performing Lab:[facility], [address] [place] [phone] Notes/Report: White Blood Count 4.6 4.8-10.8 X10*3/uL Red Blood Count 5.17 4.60-5.80 X10*6/uL Hemoglobin 14.4 14.0-18.0 g/dl Hematocrit 44.1 42.0-52.0 % Mean Corpuscular Volume 85.3 80.0-98.0 fL Mean Corpuscular Hemoglobin 27.9 27.0-33.0 pg Mean Corpuscular HGB Conc 32.7 31.0-36.0 g/dl Red Cell Distribution Width 12.6 11.0-16.0 % Platelet Count 185 160-400 X10*3/uL Mean Platelet Volume 12.0 9.4-12.4 fL Neutrophils Percent Auto 45.1 45-73 % Imm Gran Pct Auto 0.2 0.0-0.4 % Lymphocytes Percent Auto 38.0 20-40 % Monocytes Percent Auto 10.3 2-11 % Eosinophils Percent Auto 5.7 0-4 % Basophils Percent Auto 0.7 0-2 % NRBC Pct Auto 0.0 0.0-0.2 /100WBC Neutrophils Absolute Auto 2.1 2.0-8.3 x10*3/u L Imm Gran Abs Auto 0.01 0.00-0.03 X10*3/uL Lymphocytes Absolute Auto 1.7 1.2-4.9 X10*3/u L Monocytes Absolute Auto 0.5 0.1-1.2 X10*3/uL Eosinophils Absolute Auto 0.3 0.0-0.4 X10*3/u L Basophils Absolute Auto 0.0 0.0-0.2 X10*3/uL NRBC Abs Auto 0.000 0.0-0.012 X10*3/uL Comprehensive [place]. Panel Fa st Reviewed date:04/25/2023 06:48:32 PM Interpretation: Performing Lab:[address] [phone] Notes/Report: Sodium 139 135-145 mmol/L Potassium 3.7 3.3-5.1 mmol/L Chloride 104 96-108 mmol/L Carbon Dioxide 27 22-29 mmol/L Anion Gap 12 12-20 Blood Urea Nitrogen 19 9-16 mg/dL Creatinine 0.96 0.5-1.4 mg/dL Estimated Glomerular Filt Rate > 60 NOTE: For -Malagasy individuals, multiply the result by 1.210. Chronic Kidney Disease: Estimated GFR < 60 mL/min/1.73m2 Severe Kidney Disease: Estimated GFR < 15 mL/min/1.73m2 Glucose Fasting 80 60-99 mg/dL Calcium 9.4 8.4-10.2 mg/dL Bilirubin Total 0.7 0.0-1.0 mg/dL Aspartate Amino Transferase 22 5-37 U/L Alanine Aminotransferase 15 0-40 U/L Total Protein 7.1 6.5-8.0 g/dL Albumin Level 4.5 3.5-5.0 g/dL Alkaline Phosphatase 43 39-117 U/L Lipid Panel Reviewed date:04/25/2023 01:34:00 PM Interpretation: Performing Lab:[address] [phone] Notes/Report: Triglycerides 39 <150 mg/dL Desirable Triglyceride: less than 150 mg/dL Borderline High Triglyceride 150-199 mg/dL High Triglyceride: 200-499 mg/dL Very High Triglyceride: greater than or equal to 5OO mg/dL Cholesterol 159 <200 mg/dL Desirable Cholesterol: less than 200 mg/dL Borderline High Cholesterol: 200-239 mg/dL High Cholesterol: greater than 239 mg/dL LDL Cholesterol Calculated 96 <100 mg/dL Desirable LDL: less than 100 mg/dL Near Optimal/Above Optimal LDL: 110-129 mg/dL Borderline High LDL: 130-159 mg/dL High LDL: 160-189 mg/dL Very High LDL: greater than or equal to 190 mg/dL HDL Cholesterol 56 >40 mg/dL Desirable HDL: greater than 40 mg/dL Note: This HDL assay may give artificially low results in patients with liver disease. UA ClnCatch+Micro w/rflx Cul t Reviewed date:05/02/2023 08:28:36 AM Interpretation:see back 05-02-23 Performing Lab:[facility], [address] [place] [phone] Notes/Report: Urine, Clean Catch Color Urine Yellow Appearance Urine Clear PH 5.5 5.0-9.0 Glucose Urine UA Negative Negative mg/dL Urine Blood Trace Negative Specific [place] - Urine 1.025 1.005-1.025 Urine Protein Negative Neg-Trace mg/dL Urine Ketones Negative Negative mg/dL Nitrite Urine Negative Negative Leukocyte Esterase Urine Negative Negative RBC Urine 3-5 0-2 /HPF WBC Urine 0-5 0-5 /HPF Squamous Epithelial Cell Urine 0-2 0-2 /HPF Bacteria Urine None Seen None Seen Hyaline Casts Urine 0-2 0-2 /LPF REASON FOR VISIT yearly visit Encounters Encounter Location Date Provider Diagnosis Scott Tellez MD [address] [place] [address] Drive [address] [place] [phone] 04/25/2023 Scott Tellez Blood tests for routine general physical examination Z00.00 Assessments Encounter Date Diagnosis (ICD Code) Assessment Notes Treatment Notes Treatment Clinical Notes Section Notes 04/25/2023 Blood tests for routine general physical examination (ICD-10 - Z00.00) Plan Of Treatment Next Appt Details Provider Name:Scott sheppard, 05/27/2024 03:30:00 PM, [address], [address], [place], [place], [phone], Progress Notes * EDITH BRAY:[birth year] (28 yo M)Acc No.[id number]:04/25/2023 Progress Note Patient:ALEYDA ROGERS Provider:?Scott Tellez MD :1995???Age:27 Y???Sex:Male Leonides e:04/25/2023 Address:[address] [place], [place] [phone] Subjective: * Chief Complaints: * ???1. Yearly visit. * Medical History:? Objective: * Vitals:? Assessment: * Assessment: 1.?Blood tests for routine g eneral physical examination - Z00.00 (Primary)??? Plan: * Treatment: * Procedure Codes:?93605 VENIP UNCT, ROUTINE* * * The named appointment provid er may or may not be the originator of this progress note, and it is not deemed complete until electronically signed by the appointment provider. Sign off status: Pending * Provider:?Scott Tellez MD Date:?0 04/25/2023 Generated for Marlen ruiz/Jae/eTransmitting on:?05/02/2024 04:03 PM EST
== END 2024-05-02 12:13 | disposition home or self-care (01) ==
LOC: HO.LNP 12:12
PROVIDERS: Visit Provider Internal Medicine
DX: Z00.00 Encounter for general adult medical examination without abnormal findings (principal); R80.9 Proteinuria, unspecified
CPT/HCPCS: 80053; 80061; 81001; 85025